=== PATIENT | male | born 1955 | race African-American/Black ===

== ENCOUNTER 2019-11-10 19:47 | Emergency (ER) | payer OTHER ==
[2019-11-10] MEDS ORDERED: LIDOCAINE 1% INJ-PF (10 MG/ML) 30 ML SDV INJ ONE (20:59)
--- NOTE | 2019-11-10 21:01 | ER Document Report ---
ED Medical Screen (RME) - General Chief Complaint: Laceration Stated Complaint: FACE INJURY Time Seen by Provider: 11/10/19 20:57 Primary Care Provider: KP LONG MD [Primary Care Provider] - Follow up as needed Notes: Patient states he was at work and accidentally struck his face against the end of rebar. Patient with laceration to the right cheek area. Patient without any loss of consciousness. Tetanus immunization is currently up-to-date. I have greeted and performed a rapid initial assessment of this patient. A comprehensive ED assessment and evaluation of the patient, analysis of test results and completion of the medical decision making process will be conducted by additional ED providers. TRAVEL OUTSIDE OF THE [place] IN LAST 30 DAYS: No - Related Data Allergies/Adverse Reactions: No Known Allergies Allergy (Verified 02/28/16 14:01) Past Medical History Past Surgical History: Reports: Hx Orthopedic Surgery - Immunizations Hx Diphtheria, Pertussis, Tetanus Vaccination: No Physical Exam - Vital signs Vitals: Temp Pulse Resp BP Pulse Ox 98.4 F 52 L 13 146/71 H 100 11/10/19 19:55 11/10/19 19:55 11/10/19 19:55 11/10/19 19:55 11/10/19 19:55 - General General appearance: Appears well, Alert Notes: Laceration to right facial area, no active bleeding at this time. Course - Vital Signs Vital signs: Temp Pulse Resp BP Pulse Ox 98.4 F 52 L 13 146/71 H 100 11/10/19 19:55 11/10/19 19:55 11/10/19 19:55 11/10/19 19:55 11/10/19 19:55 Doctor's Discharge - Discharge Referrals: KP LONG MD [Primary Care Provider] - Follow up as needed
--- NOTE | 2019-11-10 22:50 | ER Document Report ---
HPI - HPI Time Seen by Provider: 11/10/19 20:57 Pain Level: 3 Context: Patient is a 64-year-old male that comes to the emergency department for chief complaint of laceration to the right cheek area. He states that he turned, accidentally struck his face against rebar, and this caused a laceration. He denies headache, neck pain, loss of consciousness, vomiting, or any other complaints. He states his tetanus is up-to-date within 5 years. He is not on a blood thinner. He denies any other complaints. Past Medical History - General Information source: Patient - Social History Smoking Status: Former Smoker Frequency of alcohol use: None Drug Abuse: None Lives with: Family Family History: None Patient has suicidal ideation: No Patient has homicidal ideation: No Past Surgical History: Reports: Hx Orthopedic Surgery - Immunizations Hx Diphtheria, Pertussis, Tetanus Vaccination: Yes Vertical Provider Document - CONSTITUTIONAL General Appearance: WD/WN, No Apparent Distress - INFECTION CONTROL TRAVEL OUTSIDE OF THE [place] IN LAST 30 DAYS: No - HEENT HEENT: Normocephalic. negative: Atraumatic - There is a superficial 1 cm laceration which is almost linear, horizontal, over the right zygomatic area. There is no surrounding swelling, no notable tenderness to the area. No bleeding from the nose, no septal hematoma, normal ears, unremarkable oropharyngeal exam. 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 - NECK Neck: Normal Inspection - RESPIRATORY Respiratory: Breath Sounds Normal, No Respiratory Distress - CARDIOVASCULAR Cardiovascular: Regular Rate, Regular Rhythm - GI/ABDOMEN Gastrointestinal: Abdomen Soft, Abdomen Non-Tender - BACK Back: Normal Inspection - MUSCULOSKELETAL/EXTREMETIES Musculoskeletal/Extremeties: MAEW, FROM, Non-Tender - NEURO Level of Consciousness: Awake, Alert, Appropriate Motor/Sensory: No Motor Deficit, No Sensory Deficit - DERM Integumentary: Warm, Dry, No Rash Course - Re-evaluation Re-evalutation: Patient with a superficial small laceration over the right side of her neck area without swelling to the area, no neurological deficits, no loss of consciousness, vomiting, or headache. Very low suspicion of concerning intracranial injury. Wound repaired easily with Dermabond. Discussed care, follow-up, return precautions. Patient and family state appreciation and agreement. - Vital Signs Vital signs: Temp Pulse Resp BP Pulse Ox 98.4 F 52 L 13 146/71 H 100 11/10/19 19:55 01/10/20 19:55 11/10/19 19:55 11/10/19 19:55 11/10/19 19:55 Procedures - Laceration/Wound Repair right zygomatic Wound length (cm): 1 Wound's Depth, Shape: Linear Laceration pre-procedure: Shur-Clens applied Wound Repaired With: Dermabond Discharge - Discharge Clinical Impression: Facial laceration Qualifiers: Encounter type: initial encounter Qualified Code(s): S01.81XA - Laceration without foreign body of other part of head, initial encounter Condition: Stable Disposition: HOME, SELF-CARE Additional Instructions: The wound has been closed with Dermabond, this will protect the area, this should fall off in about 5-7 days on its own. You can clean the area but avoid soaking or scrubbing the area. If the dermabond has not come off on its own after a week you can remove this by applying a topical antibiotic. Follow-up with primary care. See head injury precautions listed below. Return for any concerning symptoms including signs of infection such as pain, developing redness, fever, or any other concerning or worsening symptoms. Head Injury Precautions At this point, there is no evidence that your head injury is serious. Observation is necessary, however. Limit activity for the first 24 hours. During the first 24 hours, check to see approximately every two to three hours that the patient is easily arousable, responds normally, and can perform common tasks such as walking without difficulty. Contact your doctor or go to the hospital if any of the following things occur: Persistent vomiting, difficulty in arousing the patient, worsening or continued headache, or failure to improve as expected. Head injuries can cause symptoms that persist for a few days or even a few weeks. Referrals: KP LONG MD [NO LOCAL MD] - Follow up as needed
[2019-11-10 23:55] VITALS: BP 138/74
== END 2019-11-10 23:14 | disposition home or self-care (01) ==
LOC: ER 19:47
DX: S01.411A Laceration without foreign body of right cheek and temporomandibular area, initial encounter (principal); S11.91XA Laceration without foreign body of unspecified part of neck, initial encounter; W22.8XXA Striking against or struck by other objects, initial encounter; Y99.0 Civilian activity done for income or pay; Z87.891 Personal history of nicotine dependence
CPT/HCPCS: 99282